=== PATIENT | female | born 1955 | race Caucasian/White ===

== ENCOUNTER 2025-04-08 07:41 | Outpatient (OUT) | payer BC, SELFPAY ==
--- NOTE | 2025-04-08 08:31 | P.CN_ITS ---
Consult Note: HPI Data of Consult Patient: known to practice within the last 3 years Requesting Physician: Naomi Gilbert NP Primary Care Provider: SHAVON MCCOY DO Consult Narrative Reason for consult: neck and left shoulder pain Narrative: Rosmery Junior a pleasant 70 year old female presents for evaluation of chronic neck and left shoulder pain, hx of work injury 40 years ago with worsening pain over the last 3 months. Pt has hx of cervical facet arthropathy, cervical DDD, and pinched nerve . Pt completed a cervical xray through her PCP, we do not have the results at this time. Pt has been engaged in provider guided HEP from her PCP twice daily for 30 minutes for the last 2 months without significant improvement. Has not had recent PT, cannot attend due to working 7 days a week. Pain today 4-5/10 increasing to 10/10 aching. reporting burning in left shoulder with activity. Pain increased with lifting, activity, ADLs. Pain improved with sitting, lying, massage. shes utilizing tylenol and motrin with benefit, denies side effects. cc:: CC: Naomi Gilbert NP Review of Systems ROS Musculoskeletal Reports: neck pain and extremity pain Exam Constitutional Documenting provider has reviewed patient's vital signs: yes Common normals: no apparent distress, oriented x3, healthy appearing, alert and well nourished General appearance: cooperative HENMI Common normals: normocephalic, hearing grossly normal bilaterally and moist oral mucous membranes Head and scalp: normocephalic Eye Common normals: PERRL Pupil: PERRL Neck & C-Spine Common normals: full ROM General: normal visual inspection Cervical spine: pain with cervical ROM and cervical spine tenderness Other: tenderness noted bilateral C3,4,5 facets left > right positive spurlings left strength 5/5 in BUE sensation intact on exam, intermittent radiulopathy left C5,6 Chest Common normals: inspection of chest normal Respiratory Common normals: normal respiratory effort, no retractions and no use of accessory muscles Neuro Common normals: oriented x3 Sensorium/orientation: alert Psych Common normals: mental status grossly normal, thought process normal, cooperative, affect normal, speech normal and activity/motor behavior normal Speech: normal speech Thought process: normal thought process Results Additional Findings Additional findings: If on a controlled substance or opioids, I have checked an OARRS report on this patient and there are no aberrancies noted in the prescribing history.??If on a controlled substance or opioid a drug screen was completed and reviewed within the last year, and if there has not been a drug screen completed we ordered one today to monitor higher risk, state monitored pain medication use. As part of providing excellent, safe, comprehensive care, the following was completed at our patient's visit: 1. A medication reconciliation and review to ensure accurate knowledge of current/active medications, including asking our patients to inform us about any mjde-hev-lzqelxh medications or herbal remedies/nutritional supplements/alternative remedies. 2. A review to specifically ensure our patients have had annual screening for screening for depression, screening for tobacco use, and screening for unhealthy alcohol use. For concerning screenings had a discussion with the patient, provided patient education, and recommended follow-up with primary care provider when appropriate. If patient noted with a risk of falling, they received education on strength, gait, and balance training to prevent future risk of falling. Portions of this note may have been carried over from the previous visit and updated as appropriate. Please note this office utilizes paper charting in addition to the electronic medical record. A list of current medications, vitals, and PMH is available there as the clinical staff outside of myself do not have access to [employer] charting during the clinic day operations. As part of providing quality comprehensive care the current medications, vitals, and PMH were reviewed in the paper chart. Assessment and Plan Assessment and Plan (1) Degenerative disc disease, cervical: (2) Cervical radiculopathy: Plan The patient has had over 3 months of moderate to severe neck and left shoulder pain with functional impairment and inadequate response to conservative care including NSAIDS (unless there are contraindication such as concurrent blood thinners), multiple oral or topical pain medications, and home exercise program/ physical therapy.? Patient has completed >6 weeks of guided home exercise program and/or formal physical therapy program without relief of their symptoms.? The Oswestry Disability Index was completed, and the patient scored a 6%.? The patient noted the following:?? pain with lifting weights and travel update cervical MRI without contrast to assess cervical DDD and radiculopathy > 1 year unresponsive to >6 weeks of provider guided HEP, heat, ice, tylenol, NSAIDs in consideration of interventional therapy vs ns consultation ? continue HEP as tolerated f/u to review cervical MRI
== END 2025-04-08 07:42 | disposition home or self-care (01) ==
PROVIDERS: PCP Internal Medicine; Visit Provider Nurse Practitioner
DX: M50.30 Other cervical disc degeneration, unspecified cervical region (principal); M54.12 Radiculopathy, cervical region
CPT/HCPCS: G0463

== ENCOUNTER 2025-05-14 07:55 | Outpatient (OUT) | payer BC, SELFPAY ==
--- OUTSIDE RECORDS SUMMARY | 2025-05-05 18:00 | XMS_ITS | Encounter Summary ---
Author Organization [facility] Address [address] [place] [address] Care Team Providers Care Wafer Batter Mixer Name Role Phone Juan Jose Maloney MD Primary Care Provider [phone] Reason for Visit * Imaging (Routine) - ClosedSpecialtyDiagnoses / ProceduresReferred By Contact Referred To ContactRadiology Diagnoses Radiculopathy, cervical region Procedures MR cervical spine wo Naomi Huston, DESKTOP ANALYST [address] [place] [address] Phone: tel: fax: [facility] [address] [place] [address] Phone: tel: fax: Referral IDStatusReasonStart DateExpiration DateVisits RequestedVisits [id number]/24/20253/ Encounter Details DateTypeDepartmentCare Team (Latest Contact Info)Gremvcsxmbe52/21/2025 6:00 PM EDTAncillary Procedure [facility] [address] [place] [address] Radiculopathy, cervical region Social History Tobacco UseTypesPacks/DayYears UsedDateSmoking Tobacco: NeverSmokeless Tobacco: NeverAlcohol UseStandard Drinks/WeekCommentsNever0 (1 standard drink = 0.6 oz pure alcohol)CommentsUnknownSex and Gender InformationValueDate Recorded Sex Assigned at BirthNot on fileLegal ObrJqfuyl30/15/2023 9:31 PM EDTGender IdentityNot on fileSexual OrientationNot on filedocumented as of this encounter Plan of Treatment Not on file documented as of this encounter Procedures Procedure NamePriorityDate/TimeAssociated DiagnosisCommentsMR CERVICAL SPINE WO HUAWTFOORxxphvf21/21/2025 7:03 PM EDT Radiculopathy, cervical region documented in this encounter Results * MR cervical spine wo contrast (05/05/2025 7:03 PM EDT)Anatomical Region LateralityModalitySpine, C-spineMagnetic ResonanceSpecimen (Source)Anatomical Location / LateralityCollection Method / VolumeCollection TimeReceived Time 05/06/2025 11:56 AM EDT Impressions 05/06/2025 12:01 PM EDT Degenerative changes cervical spine as discussed. ?? ELECTRONICALLY SIGNED BY: Rios Shields MD Narrative 05/06/2025 12:01 PM EDT EXAMINATION/TECHNIQUE: MR CERVICAL SPINE WO CONTRAST HISTORY: ?? Neck pain with left radiculopathy. Denies prior cervical spine surgery. No recent injury. COMPARISON: None. RESULT: Counting reference: ??Craniocervical junction. Alignment: ?? Alignment is anatomic. Bone marrow signal/fracture: ?No evidence for acute or chronic fracture. No pathologic marrow infiltration. Craniocervical junction: ?Degenerative changes C1-C2, otherwise grossly unremarkable. Cord: ??The cervical spinal cord is within normal limits of signal intensity and morphology. Cervical soft tissues: ?? The paraspinal soft tissues are unremarkable. C2-C3: No significant canal or foraminal narrowing. C3-C4: Disc bulge. Endplate osteophytes. No significant canal or foraminal narrowing. C4-C5: Disc bulge. Endplate osteophytes. Facet/uncovertebral degenerative changes. Mild bilateral foraminal narrowing without significant canal narrowing. C5-C6: Broad-based disc bulge. Endplate osteophytes. Facet/uncovertebral degenerative changes. Mildto moderate canal narrowing with moderate bilateral foraminal narrowing. C6-C7: Broad-based disc bulge. Endplate osteophytes. Facet/uncovertebral degenerative changes. Moderate bilateral foraminal narrowing with mild to moderate canal narrowing. C7-T1: No significant canal or foraminal narrowing. Upper thoracic spine: Few tiny disc bulges without significant canal or foraminal narrowing. Procedure Note Rios Shields MD - 05/06/2025 EXAMINATION/TECHNIQUE: MR CERVICAL SPINE WO CONTRAST HISTORY: Neck pain with left radiculopathy. Denies prior cervical spinesurgery. No recent injury. COMPARISON: None. RESULT: Counting reference: Craniocervical junction. Alignment: Alignment is anatomic. Bone marrow signal/fracture: No evidence for acute or chronic fracture.No pathologic marrow infiltration. Craniocervical junction: Degenerative changes C1-C2, otherwise grossly unremarkable. Cord: The cervical spinal cord is within normal limits of signalintensity and morphology. Cervical soft tissues: The paraspinal soft tissues are unremarkable. C2-C3: No significant canal or foraminal narrowing. C3-C4: Disc bulge. Endplate osteophytes. No significant canal or foraminal narrowing. C4-C5: Disc bulge. Endplate osteophytes. Facet/uncovertebral degenerative changes. Mild bilateral foraminal narrowing without significant canalnarrowing. C5-C6: Broad-based disc bulge. Endplate osteophytes. Facet/uncovertebral degenerative changes. Mild to moderate canal narrowing with moderatebilateral foraminal narrowing. C6-C7: Broad-based disc bulge. Endplate osteophytes. Facet/uncovertebral degenerative changes. Moderate bilateral foraminal narrowing with mild to moderate canal narrowing. C7-T1: No significant canal or foraminal narrowing. Upper thoracic spine: Few tiny disc bulges without significant canal orforaminal narrowing. IMPRESSION: Degenerative changes cervical spine as discussed. ELECTRONICALLY SIGNED BY: Rios Shields MD Authorizing ProviderResult TypeResult StatusLehigh Valley Hospital [facility] NPIMG MRI PROCEDURESFinal Result documented in this encounter Visit Diagnoses Diagnosis Radiculopathy, cervical region Brachial neuritis or radiculitis nos documented in this encounter Care Teams Team MemberRelationshipSpecialtyStart DateEnd Date Juan Jose Maloney MD [address] [place] [id number] PCP - GeneralInternal Medicine12/14/22documented as of this encounter
--- NOTE | 2025-05-14 07:55 | P.CN_ITS ---
Consult Note: HPI Data of Consult Patient: known to practice within the last 3 years Consult date: 05/14/25 Requesting Physician: Naomi Gilbert NP Primary Care Provider: SHAVON MCCOY DO Consult Narrative Reason for consult: neck and left shoulder pain Narrative: Rosmery Junior a pleasant 70 year old female presents for evaluation of chronic neck and left shoulder pain, hx of work injury 40 years ago with worsening pain over the last 3 months. Pt has hx of cervical facet arthropathy, cervical DDD, and pinched nerve . Pt has been engaged in provider guided HEP from her PCP twice daily for 30 minutes for the last 2 months without significant improvement. Has not had recent PT, cannot attend due to working 7 days a week. Pain today 2/10 increasing to 6/10 aching. reporting burning in left shoulder with activity. Pain increased with lifting, activity, ADLs. Pain improved with sitting, lying, massage. shes utilizing tylenol and motrin with benefit, denies side effects. recently underwent cervical MRI which is consistent with multilevel degeneration, mild to moderate disc bulging with stenosis. cc:: CC: Naomi Gilbert NP Review of Systems ROS Musculoskeletal Reports: neck pain and extremity pain Meds Home Medications and Allergies Home Medications ?Medication ?Instructions ?Recorded ?Confirmed ?Type acetaminophen 325 mg tablet (Pain 325 mg PO Q6H PRN pa in 04/08/25 04/08/25 History Relief (acetaminophen)) diclofenac sodium topical 04/08/25 History Allergies Allergy/AdvReac Type Severity Reaction Status Date / Time No Known Drug Allergies Allergy Verified 04/08/25 09:14 Exam Constitutional Documenting provider has reviewed patient's vital signs: yes Common normals: no apparent distress, oriented x3, healthy appearing, alert and well nourished General appearance: cooperative [facility] Common normals: normocephalic, hearing grossly normal bilaterally and moist oral mucous membranes Head and scalp: normocephalic Eye Common normals: PERRL Pupil: PERRL Neck & C-Spine Common normals: full ROM General: normal visual inspection Cervical spine: pain with cervical ROM and cervical spine tenderness Other: tenderness noted bilateral C3,4,5 facets left > right positive spurlings left strength 5/5 in BUE sensation intact on exam, intermittent radiulopathy left C5,6,7 Chest Common normals: inspection of chest normal Respiratory Common normals: normal respiratory effort, no retractions and no use of accessory muscles Neuro Common normals: oriented x3 Sensorium/orientation: alert Psych Common normals: mental status grossly normal, thought process normal, cooperative, affect normal, speech normal and activity/motor behavior normal Speech: normal speech Thought process: normal thought process Results Additional Findings Additional findings: If on a controlled substance or opioids, I have checked an OARRS report on this patient and there are no aberrancies noted in the prescribing history.??If on a controlled substance or opioid a drug screen was completed and reviewed within the last year, and if there has not been a drug screen completed we ordered one today to monitor higher risk, state monitored pain medication use. As part of providing excellent, safe, comprehensive care, the following was completed at our patient's visit: 1. A medication reconciliation and review to ensure accurate knowledge of current/active medications, including asking our patients to inform us about any pzkj-siv-gzrbvff medications or herbal remedies/nutritional supplements/alternative remedies. 2. A review to specifically ensure our patients have had annual screening for screening for depression, screening for tobacco use, and screening for unhealthy alcohol use. For concerning screenings had a discussion with the patient, provided patient education, and recommended follow-up with primary care provider when appropriate. If patient noted with a risk of falling, they received education on strength, gait, and balance training to prevent future risk of falling. Portions of this note may have been carried over from the previous visit and updated as appropriate. Please note this office utilizes paper charting in addition to the electronic medical record. A list of current medications, vitals, and PMH is available there as the clinical staff outside of myself do not have access to [employer] charting during the clinic day operations. As part of providing quality comprehensive care the current medications, vitals, and PMH were reviewed in the paper chart. Assessment and Plan Assessment and Plan (1) Bulge of cervical disc without myelopathy: (2) Cervical spinal stenosis: (3) Cervical radiculopathy: Plan The patient has had over 3 months of moderate to severe neck and LUE pain with functional impairment and inadequate response to conservative care including NSAIDS (unless there are contraindication such as concurrent blood thinners), multiple oral or topical pain medications, and home exercise program/physical therapy.? Patient has completed >6 weeks of guided home exercise program and/or formal physical therapy program without relief of their symptoms.? The Oswestry Disability Index was completed, and the patient scored a 12%.? The patient noted the following:?? cervical mri reviewed with pt. recommend left C5-6 C6-7 TFESI under fluoroscopy for cervical disc bulge, stenosis, radiculopathy PT for cervical traction continue HEP as tolerated defer NS consultation, minimal neurological findings f/u 2 weeks after injection
--- OUTSIDE RECORDS SUMMARY | 2025-05-14 07:58 | XMS_ITS | Encounter Summary ---
Author Organization [facility] Address [address] [facility] [place] [address] Care Team Providers Care Hard Tile Setter Apprentice Name Role Phone Juan Jose Maloney MD Primary Care Provider [phone] Encounter Details DateTypeDepartmentCare Team (Latest Contact Info)Kmicnciyhzq55/21/2025Travel Social History Tobacco UseTypesPacks/DayYears UsedDateSmoking Tobacco: NeverSmokeless Tobacco: NeverAlcohol UseStandard Drinks/WeekCommentsNever0 (1 standard drink = 0.6 oz pure alcohol)CommentsUnknownSex and Gender InformationValueDate Recorded Sex Assigned at BirthNot on fileLegal TkqAomuna55/15/2023 9:31 PM EDTGender IdentityNot on fileSexual OrientationNot on filedocumented as of this encounter Plan of Treatment Not on file documented as of this encounter Visit Diagnoses Not on filedocumented in this encounter Care Teams Team MemberRelationshipSpecialtyStart DateEnd Date Juan Jose Maloney MD [address] [place] [address] PCP - GeneralInternal Medicine12/14/22documented as of this encounter
--- OUTSIDE RECORDS SUMMARY | 2025-05-14 07:58 | XMS_ITS | Clinical Summary ---
Author Organization [employer] Address [id number] [address] [place] [address] Care Team Providers Care Equipment Technician Name Role Phone Haider Warner DO, Charles L Primary Care Provider Allergies No known active allergies Medications MedicationSigDispense QuantityRefillsLast FilledStart DateEnd DateStatus metoprolol succinate XL (TOPROL XL) 50 mg 24 hr tablet 01/01/2023ctive omeprazole (PriLOSEC) 40 mg capsule TAKE 1 CAPSULE BY MOUTH EVERY DAY IN THE MORNING BEFORE MEALS10/26/2022ctive cholecalciferol (VITAMIN D3) 1,000 units tablet Take 1 tablet (1,000 Units total) by mouth in the morning.Active rosuvastatin (CRESTOR) 5 mg tablet 01/01/2023ctive Active Problems ProblemNoted DateDiagnosed RlgqNqqliti44/09/2024Recurrent UTI01/05/2023Urologic qfajcayuh48/23/2023 Overview (08/24/2023): 1. Sexually active with domestic partner with By history recurrent culture proven UTIs onset estimated mid October 2022 and history of UTI age 18 years; reports 1 child is a physician 2. Improper wiping 3. Constipation treated successfully with oral pharmacotherapy 4. Subjective incomplete emptying 5. Absent from requested 2 weeks follow-up from 01/05/2023 until 08/24/2023 patient reports with work related attendance issues for medical appointments 6. Flow, by history compromised fine need to defecate, 01/17/2023, low voided volume 82 mL, peak and mean 14.8 and 5.8, PVR 550 mL; PVR 0 mL on 08/24/2023 Difficulty xcezkdy5001/05/2023 Family History Medical HistoryRelationNameCommentsHypertensionBrotherCancerMotherlung cancer -exposureOtherMotherhx of uti's and some stretching?urethraThyroid disease SisterRelationNameStatusCommentsBrotherAliveMotherDeceasedSisterAlive Social History Tobacco UseTypesPacks/DayYears UsedDateSmoking Tobacco: NeverSmokeless Tobacco: NeverAlcohol UseStandard Drinks/WeekCommentsNever0 (1 standard drink = 0.6 oz pure alcohol)ChildcareAnswerDate VdlxtszqWawnkrtzyGiwubhz36/11/2019Employment AnswerDate XspyuojzCyjeywrqqlOzamntr92/11/2019Hunger ScreeningAnswerDate RecordedWithin the past 12 months we worried whether our food would run out before we got money to buy more.Never True08/24/2023Within the past 12 months the food we bought just didn't last and we didn't have money to get more.Never True08/24/2023CommentsUnknownSex and Gender InformationValueDate RecordedSex Assigned at BirthNot on fileLegal AitAlmpzn15/04/2015 5:35 PM EDT Gender IdentityNot on fileSexual OrientationNot on file Last Filed Vital Signs Vital SignReadingTime TakenCommentsBlood Irmecokb290/9708/24/2023 8:52 AM EST Obiom970308/24/2023 8:52 AM ESTTemperature--Respiratory Rate--Oxygen Saturation-- Inhaled Oxygen Concentration--Hniehv44.2 kg (168 lb)08/24/2023 8:52 AM ESTHeight 152.4 cm (5')08/24/2023 8:52 AM ESTBody Mass Index32.8108/24/2023 8:52 AM EST Plan of Treatment Health MaintenanceDue DateLast DoneCommentsDepression Nijrmdhgz72/19/1967 DTaP,Tdap and Td Vaccines (1 - Tdap)1974Zoster (Shingles) Vaccine (1 of 2) 2005Fall Risk Cqbcsjhbq05/19/2020Adult BMI Lwdkvvbqp08 Tobacco Tqadyuuvq18OVID-19 Vaccine (2024- season) 512/03/2021, 10/21/2020, 09/30/2020Influenza Mulixzi2403/16/2025 Medical Devices Not on file Insurance Care Teams Team MemberRelationshipSpecialtyStart DateEnd Date Juan Jose Malonye Jr., DO [address] [place] [id number] PCP - GeneralInternal Medicine01/09/23
--- OUTSIDE RECORDS SUMMARY | 2025-05-14 07:58 | XMS_ITS | Patient Health Record ---
Author Organization [facility] Address [address] [place] [phone] Care Team Providers Care Hspt Tutor Name Role Phone Juan Jose Maloney Primary Care Provider Josiane Cadet Unavailable Unavailable Reason For Referral No Information Medications Medication SIG (Take, Route, Frequency, Duration) Notes Start Date End Date Status Metoprolol Succinate ActiveGolytely 236 GM236 ML Orally As directed; Duration: 1 days12/06/2022ctive Rosuvastatin CalciumActiveDicyclomine HCl 20 MG1 tablet Orally Three times a day; Duration: 30 day(s)12/06/2022ctiveEdarbiActiveOmeprazole 40 MG1 capsule 30 minutes before morning meal Orally Once a dayActive Social History Tobacco Use: Social History Observation Description Date Details (start date - stop date) Never Smoker NA - NA Alcohol Screen Question Answer Notes Did you have a drink containing alcohol in the p ast year? No Vyxwzc0HueypydxbnevebOuianhkkJebrifq Question Answer Notes Status nonsmoker Section Notes: . Principal Database Developer Problems Problem Type SNOMED Code ICD Code Onset Dates Problem Status W/U Status Risk Notes Problem Diverticular disease of colon (161700762) Diverticulosis (K57.90) ActiveconfirmedProblemScreening for colon cancer (225181841)Screening for colon cancer (Z12.11)ActiveconfirmedProblemLeft lower quadrant pain (060172981)LLQ abdominal pain (R10.32)Activeconfirmed Plan Of Treatment No Information Insurance Providers Payer Name Payer Address Payer Phone Subscriber Number Group Number Insured Name Patient Relationship to Insured Coverage Start Date Coverage End Date [employer] [address] [place] [address] [id number] Rosmery Junior Self - patient is the insured Medical (General) History Medical History History ICD Code reflux hypertensiondiverticulitisdiverticulosischolelithiasisobesitySurgical History Surgery Date(Month/Year) cholecystectomy hysterectomyabdominoplasty
--- OUTSIDE RECORDS SUMMARY | 2025-05-14 07:58 | XMS_ITS | Clinical Summary ---
Author Organization [facility] Address [address], [address] [place] [address] Care Team Providers Care Supervisor [employer] Name Role Phone Mildredheidy Juan Jose Roge COLE Primary Care Provider [phone] Allergies No known active allergies Medications MedicationSigDispense QuantityRefillsLast FilledStart DateEnd DateStatus vitamin D3 (CHOLECALCIFEROL) 1000 UNITS TABS tablet Take 1,000 Units by mouth daily.Active Active Problems ProblemNoted DateDiagnosed DateS/P [facility]01/28/2013HypertensionVision abnormalitiesDiverticulosis Family History Medical HistoryRelationNameCommentsHypertensionMotherBreast CancerNeg HxCancer Neg HxColon CancerNeg HxDiabetesNeg HxEclampsiaNeg HxOvarian CancerNeg HxPreterm LaborNeg HxSpont AbortionsNeg HxStrokeNeg HxRelationNameStatusCommentsBrother AliveFatherNo ContactMotherAliveSisterAlive Social History Tobacco UseTypesPacks/DayYears UsedDateSmoking Tobacco: NeverSmokeless Tobacco: Never Tobacco Cessation:Counseling Given: Not Answered Alcohol UseStandard Drinks/WeekCommentsYes0 (1 standard drink = 0.6 oz pure alcohol)OccassionalCommentsNoSex and Gender InformationValueDate RecordedSex Assigned at BirthNot on fileLegal YqgVzivtp28/10/2013 2:33 PM EST Gender IdentityNot on fileSexual OrientationNot on file Last Filed Vital Signs Vital SignReadingTime TakenCommentsBlood Jkmkvhuo686/7609 3:02 PM EDT left arm, fddwfyaBivnr8559/16/2014 3:02 PM EDTTemperature--Respiratory Rate16 03/31/2014 3:02 PM EDTOxygen Saturation--Inhaled Oxygen Concentration--Weight 79.4 kg (175 lb)07/14/2024 7:20 PM PGCTipjsi868.4 cm (5')07/14/2024 7:20 PM EST Body Mass Index34.181 7:20 PM EST Plan of Treatment Health MaintenanceDue DateLast DoneCommentsDepression Bshnht4801/31/1967Hepatitis C gsxbma2001/31/1973DTaP/Tdap/Td vaccine (1 - Tdap)1974Diabetes screen 01/31/19906009Ldfgob48/19/1995FIT/FOBT: Average risk02/01/2000Fecal-DNA (Cologuard): Average risk02/01/2000Sigmoidoscopy/CT ipygfbmocsve53/19/2000Pneumococcal 50+ years Vaccine (1 of 1 - PCV)2005Shingles vaccine (1 of 2)2005DEXA (modify frequency per FRAX score)01/31/20106158Vkmzwlgtitk85/09/202307/03/2013 Colorectal Cancer Nbntyr0201/21/2023Flu vaccine (#1)5COVID-19 Vaccine ( season)512/03/2021, 10/21/2020, 09/30/2020reast cancer ytrhwm35, 06/01/2023, 04/24/2022, Additional history exists Respiratory Syncytial Virus (RSV) or age 60 yrs+ (1 - 1-dose 75+ series)2030Hepatitis A vaccineAged OutNo longer eligible based on patient's age to complete this topicHepatitis B vaccineAged OutNo longer eligible based on patient's age to complete this topicHib vaccineAged OutNo longer eligible based on patient's age to complete this topicMeningococcal (ACWY) vaccineAged OutNo longer eligible based on patient's age to complete this topicMeningococcal B vaccineAged OutNo longer eligible based on patient's age to complete this topicPolio vaccineAged OutNo longer eligible based on patient's age to complete this topic Procedures Procedure NamePriorityDate/TimeAssociated DiagnosisCommentsMAM ETHAN DIGITAL SCREEN SELF REFERRAL W OR WO CAD YNOAOZNJMXgnykce96/30/2024 7:23 PM EST Visit for screening mammogram from Last 3 Months or Most Recently Relevant to Health Maintenance Results * VERONA ETHAN DIGITAL SCREEN SELF REFERRAL W OR WO CAD BILATERAL (07/14/2024 7:23 PM EST)Anatomical RegionLateralityModalityBreastBilateralMammographySpecimen (Source)Anatomical Location / LateralityCollection Method / VolumeCollection TimeReceived Time07/17/2024 11:07 AM EST Impressions 07/17/2024 11:08 AM EST No evidence of malignancy seen in either breast. Advise annual screening mammography. Breast tissue can be either dense or not dense. Dense tissue makes it harder to find breast cancer on a mammogram and also raises the risk of developing breast cancer. Your breast tissue is NOT DENSE. Talk to your health care provider about breast density, risk for breast cancer and your individual situation. BI-RADS 1 BIRADS: BIRADS - CATEGORY 1 Negative, no evidence of malignancy. ??Normal interval follow-up is recommended in 12 months. OVERALL ASSESSMENT - NEGATIVE A letter of notification will be sent to the patient regarding the results. The [employer] recommends annual mammograms for women 40 years and older. Performing Facility: [address] [place] [address] Narrative 07/17/2024 11:08 AM EST EXAMINATION: SCREENING DIGITAL BILATERAL MAMMOGRAM WITH TOMOSYNTHESIS, 07/14/2024 TECHNIQUE: Screening mammography of the bilateral breasts was performed with tomosynthesis. ??2D standard and 3D tomosynthesis combination imaging performed through both breasts in the MLO and CC projection. ??Computer aided detection was utilized in the interpretation of this exam. COMPARISON: 01 June 2023; 24 April 2022 HISTORY: Screening. No family history of breast cancer. ??3 year history of oral contraception. ??No HRT therapy or breast interventions. ??TC score 4.71 FINDINGS: Bilateral breasts are composed of scattered fibroglandular density. ??No skin thickening, nipple contour changes, suspicious calcifications, suspicious masses, areas of architectural distortion or significant interval changes are noted. Authorizing ProviderResult TypeResult StatusCharruchi Maloney DOI MAMMOGRAPHY ORDERABLESFinal Result from Last 3 Months or Most Recently Relevant to Health Maintenance Insurance Care Teams Team MemberRelationshipSpecialtyStart DateEnd Date Juan Jose Maloney DO [facility] [place] [address] PCP - GeneralInternal Medicine01/28/13
--- OUTSIDE RECORDS SUMMARY | 2025-05-14 07:58 | XMS_ITS | Clinical Summary ---
Author Organization [facility] Address [address] [place] [address] Care Team Providers Care Senior Professional Services Consultant Name Role Phone Juan Jose Maloney MD Primary Care Provider [phone] Allergies No known active allergies Medications MedicationSigDispense QuantityRefillsLast FilledStart DateEnd DateStatus rosuvastatin (Crestor) 5 MG tablet 01/01/2023ctive omeprazole (PriLOSEC) [address] capsule 10/28/2023ctive montelukast (Singulair) 10 MG tablet 10/28/2023ctive metoprolol succinate XL (Toprol-XL) 50 MG 24 hr tablet 01/01/2023ctive DULoxetine (Cymbalta) [address] capsule 10/16/2023ctive Encounters DateTypeDepartmentCare DdpiOlwkqmbcygb68/21/2025 6:00 PM EDTAncillary Procedure [facility] [address] [place] [address] Radiculopathy, cervical gqjonp4405/05/2025Travelfrom Last 3 Months Family History RelationNameStatusCommentsFatherDeceasedMotherDeceased Social History Tobacco UseTypesPacks/DayYears UsedDateSmoking Tobacco: NeverSmokeless Tobacco: NeverAlcohol UseStandard Drinks/WeekCommentsNever0 (1 standard drink = 0.6 oz pure alcohol)CommentsUnknownSex and Gender InformationValueDate Recorded Sex Assigned at BirthNot on fileLegal UetZnvbvz23/15/2023 9:31 PM EDTGender IdentityNot on fileSexual OrientationNot on file Last Filed Vital Signs Vital SignReadingTime TakenCommentsBlood Tclrsswq685/8109 12:00 PM EDT Pulse--Temperature--Respiratory Rate--Oxygen Saturation--Inhaled Oxygen Concentration--Brrulx58.7 kg (169 lb)12/13/2023 8:51 AM ZKIXxtzju596.4 cm (5') 12/13/2023 8:51 AM EDTBody Mass Index33.01012/13/2023 8:51 AM EDT Plan of Treatment Not on file Procedures Procedure NamePriorityDate/TimeAssociated DiagnosisCommentsMR CERVICAL SPINE WO SHFEALHMAboizzy18/21/2025 7:03 PM EDT Radiculopathy, cervical region from Last 3 Months Results * MR cervical spine wo contrast [...] BY: Rios Shields MD Authorizing ProviderResult TypeResult StatusWest[facility] [place] MRI PROCEDURESFinal Result from Last 3 Months Insurance Care Teams Team MemberRelationshipSpecialtyStart DateEnd Date Juan Jose Maloney MD [address] [place] [address] PCP - GeneralInternal Medicine12/14/22
--- OUTSIDE RECORDS SUMMARY | 2025-05-14 07:58 | XMS_ITS | Clinical Summary ---
Author Organization [facility] Address [address] [place] [address] Care Team Providers Care Hay Stacker Name Role Phone Unavailable Primary Care Provider Unavailabl e Allergies No known active allergies Medications MedicationSigDispense QuantityRefillsLast FilledStart DateEnd DateStatus metoprolol succinate XL (Toprol-XL) 50 mg 24 hr tablet TAKE 1 TABLET BY MOUTH EVERY DAY IN THE MORNING. HOLD IF BLOOD PRESSURE <110 OR HEART RATE <50009/22/2022ctive rosuvastatin (Crestor) 5 mg tablet 08/06/2022ctive Active Problems ProblemNoted DateDiagnosed LgkgWeahsoqsrwabnn43/08/2278Feiunucwwjju82/08/2023 Vision ebkfglriyorpt98/08/2023S/P [facility]-BSO01/28/2013 Social History Tobacco UseTypesPacks/DayYears UsedDateSmoking Tobacco: NeverSmokeless Tobacco: Never Tobacco Cessation:Counseling Given: Not Answered Alcohol UseStandard Drinks/WeekCommentsYes0 (1 standard drink = 0.6 oz pure alcohol)occassionalyUT Safety & EnvironmentAnswerDate RecordedFear of Current or Ex-PartnerNot on file09/06/2023Emotionally AbusedNot on file09/06/2023hysically AbusedNot on file09/06/2023Sexually AbusedNot on file09/06/2023hysically or Sexually AbusedNot on file09/06/2023CommentsNoSex and Gender Information ValueDate RecordedSex Assigned at BirthNot on fileLegal VyiVbxflh59/09/2023 3:50 PM ESTGender IdentityNot on fileSexual OrientationNot on file Last Filed Vital Signs Vital SignReadingTime TakenCommentsBlood Pressure--Pulse--Temperature-- Respiratory Rate--Oxygen Saturation--Inhaled Oxygen Concentration--Gwnrbz69.7 kg (169 lb)11/20/2022 8:53 AM KSLMfewjz637.1 cm (4' 11.5 )11/20/2022 8:53 AM EDT Body Mass Index33.56011/20/2022 8:53 AM EDT Plan of Treatment Health MaintenanceDue DateLast DoneCommentsCT Bdtwplkyiplz1955Colonoscopy 1955olorectal Cancer Uaeqcksox1955FIT-DNA1955FIT1955 FOBT1955 5768Cpbhxliwschnp1955Depression Apgxbphdf51/19/1967Adult Tetanus 1977Pneumococcal Vaccine: 50+ Years (1 of 1 - PCV)2005Zoster Vaccines (1 of 2)2005Fall Risk Tzeilbapf75/19/2224Nfzqfdhvx56/10/2024 04/24/2022OVID-19 Vaccine (1 - season)2025Influenza Vaccine (#1) 2025HIB VaccinesAged OutNo longer eligible based on patient's age to complete this topicHPV VaccinesAged OutNo longer eligible based on patient's age to complete this topicIPV VaccinesAged OutNo longer eligible based on patient's age to complete this topicMeningococcal B VaccineAged OutNo longer eligible based on patient's age to complete this topicMeningococcal VaccineAged OutNo longer eligible based on patient's age to complete this topicRotavirus Vaccines Aged OutNo longer eligible based on patient's age to complete this topic Insurance MemberSubscriberPlan / Payer (Effective for All Dates)Name:Rosmery Junior Relation to Subscriber:SelfName:Rosmery Junior Payer ID:[id number] (NAIC) Group ID:Not on file Type:Not on file Address: [address] [place] [id number]
== END 2025-05-14 07:56 | disposition home or self-care (01) ==
LOC: PM 07:55
PROVIDERS: PCP Internal Medicine; Visit Provider Nurse Practitioner
DX: M50.30 Other cervical disc degeneration, unspecified cervical region (principal); M48.02 Spinal stenosis, cervical region; M54.12 Radiculopathy, cervical region
CPT/HCPCS: G0463